=== PATIENT | male | born 1995 | race Caucasian/White ===

== ENCOUNTER 2020-06-06 11:10 | Emergency (ER) | payer BC ==
[~2020-06-06] VITALS: Ht 177.8 cm; Wt 84.1 kg
[2020-06-06 11:23] VITALS: BP 128/84; TEMP 98.5
[2020-06-06 12:00] LABS: BASO % 0.4 % (0.0-2.0); EOS # 0.2 (0.0-0.7); GRAN # 4.7 (1.4-6.5); GRAN % 59.9 % (42.2-75.2); HEMATOCRIT 51.1 % (42.0-52.0); LYMPH # 2.2 (1.2-3.4); LYMPH % 28.3 % (20.0-51.0); MEAN CELL VOLUME 85 fl (80.0-100.0); MEAN CORPUSCULAR HEMOGLOBIN 28 pg (27.0-31.0); MEAN CORPUSCULAR HGB CONC 33 g/dl (33.0-37.0); MEAN PLATELET VOLUME 9.1 fl (7.4-10.4); MONO # 0.7 (0.1-0.6); MONO % 9.1 % (1.7-9.3); PLATELET COUNT 221 K/mm3 (130-400); RED BLOOD COUNT 6.05 M/mm3 (4.20-5.60); REDCELL DISTRIBUTION WIDTH-CV 12.9 % (11.5-14.5)
[2020-06-06 12:14] LABS: ALBUMIN 4.5 gm/dL (3.5-5.0); BILIRUBIN,TOTAL 0.8 mg/dL (0.0-1.0); C-REACTIVE PROTEIN 1.3 mg/dL (0.0-0.9); CALCIUM 9.7 mg/dL (8.4-10.2); CREATININE, serum 0.97 (0.66-1.25); POTASSIUM 4.6 mmol/L (3.4-5.0); TOTAL PROTEIN 7.6 gm/dL (6.4-8.2)
[2020-06-06 12:21] LABS: COLLECTION METHOD CLEAN CATCH
[2020-06-06 12:31] LABS: MUCOUS Present /lpf; PH 7 (5-8); SQUAMOUS EPITHELIAL None Seen /hpf; URINE APPEARANCE Clear; URINE BACTERIA None Seen /hpf; URINE BILIRUBIN Negative (NEGATIVE); URINE BLOOD 1+ (NEGATIVE); URINE COLOR Yellow; URINE GLUCOSE Negative (NEGATIVE); URINE KETONE Negative (NEGATIVE); URINE LEUKOCYTE ESTERASE Negative (NEGATIVE); URINE NITRATE Negative (NEGATIVE); URINE PROTEIN(semi-quant) Negative (NEGATIVE); URINE RBC 0-2 /hpf; URINE UROBILINOGEN Negative (NEGATIVE)
[2020-06-06] MEDS ORDERED: ZOFRAN ODT4 MG PO (12:35)
[2020-06-06 12:54] VITALS: PULSE 71
== END 2020-06-06 12:53 | disposition home or self-care (01) ==
LOC: COL.ER 11:10
PROVIDERS: Nurse Practitioner Primary Care
DX: B34.9 Viral infection, unspecified (principal); Z20.822 Contact with and (suspected) exposure to COVID-19
CPT/HCPCS: J2405; J7030

== ENCOUNTER 2020-06-14 17:35 | Emergency (ER) | payer BC ==
[~2020-06-14] VITALS: Ht 177.8 cm; Wt 84.1 kg
[~2020-06-14 17:35] MED LIST: ZOFRAN ODT4 MG PO
[2020-06-14 17:37] VITALS: TEMP 98.6
[2020-06-14 19:05] VITALS: BP 138/81; PULSE 79
== END 2020-06-14 19:06 | disposition home or self-care (01) ==
LOC: COL.ER 17:35
DX: B34.9 Viral infection, unspecified (principal); F31.9 Bipolar disorder, unspecified; J45.909 Unspecified asthma, uncomplicated; F17.200 Nicotine dependence, unspecified, uncomplicated